=== PATIENT | male | born 1955 | race Caucasian/White ===

== ENCOUNTER 2017-04-24 08:47 | Day surgery (SDC) | payer BC ==
[~2017-04-24 08:47] MED LIST: Lactated Ringers 1,000 ML IV SCH; Sodium Chloride 0.9% 10 ML Syringe FLUSH PRN; Sodium Chloride 0.9% 2.5 ML Syringe FLUSH PRN
[2017-04-24] MEDS ORDERED: Lidocaine 2% 5 ML SDV ONE (09:15)
[2017-04-24] MEDS ORDERED: Propofol 200 MG/20 ML SDV ONE (09:15)
--- NOTE | 2017-04-24 09:24 | PCM.PREANE ---
Preanesthetic Assessment - Anesthesia/Transfusion/Family Hx Anesthesia History: Prior Anesthesia Without Reaction Family History of Anesthesia Reaction: No Transfusion History: Prior Transfusion Without Reaction Intubation History: Unknown - Review of Systems General: No Symptoms Pulmonary: No Symptoms Cardiovascular: No Symptoms Gastrointestinal: No Symptoms, Other (screening colonoscopy) Neurological: No Symptoms Other: Reports: None - Physical Assessment O2 Sat by Pulse Oximetry: 95 Respiratory Rate: 16 Vital Signs: Last Vital Signs Temp 36.4 C 04/24/17 09:14 Pulse 70 04/24/17 09:14 Resp 16 04/24/17 09:14 BP 133/89 04/24/17 09:14 Pulse Ox 95 04/24/17 09:14 Height: 1.75 m Weight: 103.873 kg ASA Class: 3 Mental Status: Alert & Oriented x3 Airway Class: Mallampati = 2 Dentition: Reports: Broken Tooth/Teeth (broken upper left, small chip upper front), Missing Tooth/Teeth Thyro-Mental Finger Breadths: 3 Mouth Opening Finger Breadths: 3 ROM/Head Extension: Full Lungs: Clear to Auscultation, Normal Respiratory Effort Cardiovascular: Regular Rate, Regular Rhythm - Allergies Allergies/Adverse Reactions: Allergies Allergy/AdvReac Type Severity Reaction Status Date / Time No Known Allergies Allergy Verified 05/06/16 13:29 - Blood Blood Available: No - Anesthesia Plan Pre-Op Medication Ordered: None - Acknowledgements Anesthesia Type Planned: MAC Pt an Appropriate Candidate for the Planned Anesthesia: Yes Alternatives and Risks of Anesthesia Discussed w Pt/Guardian: Yes Pt/Guardian Understands and Agrees with Anesthesia Plan: Yes PreAnesthesia Questionnaire HEENT History: Reports: Other (See Below) Other HEENT History: wears glasses Cardiovascular History: Reports: High Cholesterol, Hypertension Respiratory History: Reports: Other (See Below) Other Respiratory History: hx pneumonia Genitourinary History: Reports: BPH Musculoskeletal History: Reports: Fracture Endocrine/Metabolic History: Reports: Diabetes, Type II, Obesity/BMI 30+ Hematologic History: Reports: Blood Transfusion(s) Other Hematologic History: states blood transfusion as a Dermatologic History: Reports: None - Past Surgical History Head Surgeries/Procedures: Reports: None GI Surgical History: Reports: Appendectomy, Hernia, Inguinal Male Surgical History: Reports: Vasectomy Musculoskeletal Surgical History: Reports: Other (See Below) Other Musculoskeletal Surgeries/Procedures:: ORIF of left ankle fx. with plate and screws Dermatological Surgical History: Reports: Other (See Below) - SUBSTANCE USE Smoking Status *Q: Never Smoker Recreational Drug Use History: No - HOME MEDS Home Medications: Home Meds Canagliflozin [Invokana] 300 mg PO DAILY 05/07/16 [History] Finasteride 5 mg PO DAILY 05/07/16 [History] Gemfibrozil 600 mg PO BID 05/07/16 [History] Lisinopril 10 mg PO DAILY 05/07/16 [History] Tamsulosin HCl [Flomax] 0.4 mg PO DAILY 05/07/16 [History] atorvaSTATin Calcium [Atorvastatin Calcium] 10 mg PO DAILY 05/07/16 [History] sitaGLIPtin Phos/Metformin HCl [Janumet 50-500 MG] 1 tab PO BID 05/07/16 [ History] - CURRENT (IN HOUSE) MEDS Current Meds: Current Medications Lactated Ringer's (Ringers, Lactated) 1,000 mls @ 125 mls/hr IV ASDIRECTED HAROLDO Last Admin: 04/24/17 09:13 Dose: 125 mls/hr Sodium Chloride (Saline Flush) 10 ml FLUSH ASDIRECTED PRN PRN Reason: Keep Vein Open Sodium Chloride (Saline Flush) 2.5 ml FLUSH ASDIRECTED PRN PRN Reason: Keep Vein Open Discontinued Medications Lidocaine (Xylocaine-Mpf 2%) Confirm Administered Dose 5 ml .ROUTE .STK-MED ONE Stop: 04/24/17 09:16 Propofol (Diprivan 20 Ml) Confirm Administered Dose 400 mg .ROUTE .STK-MED ONE Stop: 04/24/17 09:16
--- NOTE | 2017-04-24 11:36 | PCM.OPNOTE ---
- General Post-Op/Procedure Note Date of Surgery/Procedure: 04/24/17 Operative Procedure(s): Screening colonoscopy Findings: Diverticulosis Pre Op Diagnosis: Screening colonoscopy Post-Op Diagnosis: Diverticulosis Anesthesia Technique: MAC Primary Surgeon: Jessica Jiang Condition: Good
[2017-04-24 14:15] VITALS: BP 127/90
--- NOTE | 2017-04-24 21:15 | OR ---
SURGEON: RACHEL ROBLES MD DATE OF PROCEDURE: 04/24/2017 PREOPERATIVE DIAGNOSIS: Screening colonoscopy. POSTOPERATIVE DIAGNOSIS: Diverticulosis. PROCEDURE PERFORMED: Screening colonoscopy. ANESTHESIA: MAC. INSTRUMENT USED: Olympus colonoscope. EXTENT OF EXAM: To the cecum. PREPARATION: Good. LIMITATIONS: None. INDICATIONS FOR EXAMINATION: The patient is a 61-year-old male who presents for a screening colonoscopy. We discussed the procedure, expected perioperative course, and risks including possible bleeding, infection, or damage to surrounding structures including perforation. The patient verbalized understanding and wishes to proceed. PROCEDURE IN DETAIL: The patient was brought into the endoscopy suite and placed in the left lateral decubitus position. A time-out was completed verifying the patient's name, age, date of , allergies, and procedure to be performed. Monitored anesthesia care was induced and continuous oxygen was provided via nasal cannula throughout the procedure. After adequate sedation was achieved, a digital rectal exam was performed. This exam was within normal limits. A well-lubricated colonoscope was then inserted in the rectum and advanced under direct visualization to the level of cecum. The cecum was identified by both visual and anatomic landmarks. A photograph was taken of the cecal cap. The scope was then fully withdrawn while examining the color, texture, anatomy, and integrity of the mucosa from the cecum to the anal canal. The findings were consistent with diverticulosis within the distal colon. The scope was then brought into the rectum and retroflexed to allow visualization of the anal canal opening. This appeared normal and a photograph was taken. The scope was then straightened out and removed from the patient. The cecum to anus time was 8 minutes. The patient tolerated the procedure well and was taken to the PACU in stable condition. ENDOSCOPIC DIAGNOSIS: Diverticulosis. RECOMMENDATION: Follow up in clinic in 2 weeks. KEVIN MANN /[id number]
== END 2017-04-24 11:53 | disposition home or self-care (01) ==
LOC: MW.SDS 08:47
PROVIDERS: ATTEND Surgery
DX: Z12.11 Encounter for screening for malignant neoplasm of colon (principal); K57.30 Diverticulosis of large intestine without perforation or abscess without bleeding; I10 Essential (primary) hypertension; E78.00 Pure hypercholesterolemia, unspecified; L72.3 Sebaceous cyst; E11.9 Type 2 diabetes mellitus without complications; Z79.84 Long term (current) use of oral hypoglycemic drugs; Z79.899 Other long term (current) drug therapy; Z90.49 Acquired absence of other specified parts of digestive tract; Z98.52 Vasectomy status; Z87.891 Personal history of nicotine dependence
CPT/HCPCS: 45378; J7120; 00810; J2704

== ENCOUNTER 2018-08-31 06:17 | Observation (INO) | payer BC ==
[~2018-08-31 06:17] MED LIST changes: +Sodium Chloride 0.9% 10 ML SDV IV PRN; +ceFAZolin 1 GM in Premix Bag 1 BAG IV ONE
--- NOTE | 2018-08-31 07:01 | PCM.PREANE ---
Preanesthetic Assessment - Anesthesia/Transfusion/Family Hx Anesthesia History: Prior Anesthesia Without Reaction Family History of Anesthesia Reaction: No Transfusion History: Prior Transfusion Without Reaction Intubation History: Unknown - Review of Systems General: No Symptoms Pulmonary: No Symptoms Cardiovascular: No Symptoms Gastrointestinal: No Symptoms Neurological: No Symptoms Other: Reports: None - Physical Assessment NPO Status Date: 08/30/18 NPO Status Time: 21:00 Height: 1.75 m Weight: 104.326 kg ASA Class: 2 Mental Status: Alert & Oriented x3 Airway Class: Mallampati = 2 Dentition: Reports: Broken Tooth/Teeth (right upper center tooth), Missing Tooth /Teeth (wisdom teeth , and right upper premolar/molar) Thyro-Mental Finger Breadths: 3 Mouth Opening Finger Breadths: 3 ROM/Head Extension: Full Lungs: Clear to Auscultation, Normal Respiratory Effort Cardiovascular: Regular Rate, Regular Rhythm - Allergies Allergies/Adverse Reactions: Allergies Allergy/AdvReac Type Severity Reaction Status Date / Time No Known Allergies Allergy Verified 08/25/18 12:48 - Acknowledgements Anesthesia Type Planned: General Anesthesia ([id number]) Pt an Appropriate Candidate for the Planned Anesthesia: Yes Alternatives and Risks of Anesthesia Discussed w Pt/Guardian: Yes Pt/Guardian Understands and Agrees with Anesthesia Plan: Yes PreAnesthesia Questionnaire HEENT History: Reports: None Other HEENT History: wears glasses Cardiovascular History: Reports: High Cholesterol, Hypertension Respiratory History: Reports: None Other Respiratory History: hx pneumonia Gastrointestinal History: Reports: Diverticulosis Genitourinary History: Reports: Prostate Disorder (bph) Musculoskeletal History: Reports: Fracture Neurological History: Reports: None Psychiatric History: Reports: None Endocrine/Metabolic History: Reports: Diabetes, Type II, Obesity/BMI 30+ Hematologic History: Reports: Blood Transfusion(s) Other Hematologic History: transfusion as an Immunologic History: Reports: None Oncologic (Cancer) History: Reports: None Dermatologic History: Reports: None - Past Surgical History Head Surgeries/Procedures: Reports: None HEENT Surgical History: Reports: Oral Surgery (dental extractions) Respiratory Surgical History: Reports: None GI Surgical History: Reports: Appendectomy, Colonoscopy, Hernia, Inguinal Male Surgical History: Reports: Vasectomy Endocrine Surgical History: Reports: None Neurological Surgical History: Reports: None Musculoskeletal Surgical History: Reports: Carpal Tunnel Other Musculoskeletal Surgeries/Procedures:: ORIF left ankle fx Oncologic Surgical History: Reports: None Dermatological Surgical History: Reports: None - SUBSTANCE USE Smoking Status *Q: Never Smoker Recreational Drug Use History: No - HOME MEDS Home Medications: Home Meds RX: Finasteride 5 mg PO DAILY 05/07/16 [History] RX: Gemfibrozil 600 mg PO BID 05/07/16 [History] RX: Lisinopril 10 mg PO DAILY 05/07/16 [History] RX: Tamsulosin HCl [Flomax] 0.4 mg PO DAILY 05/07/16 [History] RX: atorvaSTATin Calcium [Atorvastatin Calcium] 40 mg PO DAILY 05/07/16 [History ] RX: sitaGLIPtin Phos/Metformin HCl [Janumet 50-500 MG] 1 tab PO BID 05/07/16 [ History] Multivit-Min/FA/Lycopene/Lut [Centrum Silver Ultra Men's] 1 tab PO DAILY [History] RX: Potassium 99 mg PO DAILY 08/25/18 [History] - CURRENT (IN HOUSE) MEDS Current Meds: Current Medications Lactated Ringer's (Ringers, Lactated) 1,000 mls @ 100 mls/hr IV ASDIRECTED HAROLDO Lactated Ringer's (Ringers, Lactated) 1,000 mls @ 125 mls/hr IV ASDIRECTED HAROLDO Sodium Chloride (Saline Flush) 10 ml FLUSH ASDIRECTED PRN PRN Reason: Keep Vein Open Sodium Chloride (Saline Flush) 2.5 ml FLUSH ASDIRECTED PRN PRN Reason: Keep Vein Open Sodium Chloride (Normal Saline) 10 ml IV ASDIRECTED PRN PRN Reason: IV Use Sodium Chloride (Saline Flush) 10 ml FLUSH ASDIRECTED PRN PRN Reason: Keep Vein Open Sodium Chloride (Saline Flush) 2.5 ml FLUSH ASDIRECTED PRN PRN Reason: Keep Vein Open Sodium Chloride (Normal Saline) 10 ml IV ASDIRECTED PRN PRN Reason: IV Use Discontinued Medications Cefazolin Sodium/Dextrose 1 gm (/ Premix) 50 mls @ 100 mls/hr IV ONCALL ONE Stop: 08/31/18 00:34
[2018-08-31] MEDS ORDERED: fentaNYL 100 MCG/2 ML SDV ONE (07:12)
[2018-08-31] MEDS ORDERED: Midazolam 1 MG/ML 2 ML SDV ONE (07:12)
[2018-08-31] MEDS ORDERED: Propofol 200 MG/20 ML SDV ONE (07:13)
[2018-08-31] MEDS: Lactated Ringers 1,000 ML IV SCH ×4 (07:43→18:04)
[2018-08-31] MEDS ORDERED: ceFAZolin/Dextrose,Iso-Osmotic 2 GM/50 ML Duplex Bag IV ONE (08:29)
[2018-08-31] MEDS ORDERED: Phenylephrine/Normal Saline 100 MCG/ML 10 ML Syringe ONE (08:44)
[2018-08-31] MEDS ORDERED: Belladonna Alkaloids/Opium 16.2-30 MG Supp RECTAL PRN (09:18)
[2018-08-31] MEDS ORDERED: HYDROmorphone 2 MG/ML SDV IVPUSH ONE (09:25)
--- NOTE | 2018-08-31 09:44 | PCM.POSTAN ---
POST ANESTHESIA ASSESSMENT - MENTAL STATUS Mental Status: Alert, Oriented - RESPIRATORY Respiratory Status: Respiratory Rate WNL, Airway Patent, O2 Saturation Stable - CARDIOVASCULAR CV Status: Pulse Rate WNL, Blood Pressure Stable - GASTROINTESTINAL GI Status: No Symptoms - PAIN Pain Score: 0 - OBSERVATIONS Free Text/Narrative:: The patient tolerated the procedure well. There were no apparent anesthetic complications at this time.
--- NOTE | 2018-08-31 12:01 | OR ---
SURGEON: Aziza Oliva M.D. DATE OF PROCEDURE: 08/31/2018 PREOPERATIVE DIAGNOSIS: Chronic urinary retention with a small prostate. POSTOPERATIVE DIAGNOSIS: Chronic urinary retention with a small prostate. OPERATION: TURP. DESCRIPTION OF PROCEDURE: The patient was given spinal anesthesia, was placed in dorsal lithotomy position, prepped and draped in sterile drapes. The 26-English resectoscope was introduced into the bladder without difficulty. The prostate was resected in the usual manner including the neck of the bladder. At the end of the resection, all prostatic chips were removed. Both ureteral orifices were intact. The area of the external sphincter was intact. A 22 three-way Felipe catheter with 50 mL in the balloon was left in the bladder connected to TUR drip. Estimated blood loss under 100 mL. The patient was moved to recovery room in good condition. JOSE RAMON / MACKENZIE /[id number]
[2018-08-31] MEDS: Bacitracin Oint 28.35 GM Tube TOP SCH ×2 (14:26→21:04)
[2018-08-31] MEDS: Docusate Sodium 100 MG Cap PO SCH (20:06)
[2018-08-31] MEDS: Gemfibrozil 600 MG Tab PO SCH (20:06)
[2018-08-31] MEDS: METFORMIN HCL PO SCH (20:26)
[2018-08-31] MEDS: SITAGLIPTIN PHOS PO SCH (20:26)
[2018-09-01] MEDS: Lactated Ringers 1,000 ML IV SCH (01:58)
[2018-09-01] MEDS: Bacitracin Oint 28.35 GM Tube TOP SCH ×3 (05:56→22:12)
[2018-09-01] MEDS ORDERED: atorvaSTATin 10 MG Tab PO SCH (09:00)
[2018-09-01] MEDS: Gemfibrozil 600 MG Tab PO SCH ×2 (09:07→20:42)
[2018-09-01] MEDS: Lisinopril 10 MG Tab PO SCH (09:07)
[2018-09-01] MEDS: Multivitamins with Iron/Calcium/Folic Acid/Minerals Tab PO SCH (09:09)
[2018-09-01] MEDS: METFORMIN HCL PO SCH ×2 (09:09→20:42)
[2018-09-01] MEDS: SITAGLIPTIN PHOS PO SCH ×2 (09:09→20:42)
[2018-09-01] MEDS: Potassium [Potassium] 99 MG PO SCH (09:09)
--- NOTE | 2018-09-01 09:57 | PCM.SN ---
- Free Text/Narrative Note: 09/01 doing well
[2018-09-01] MEDS: Docusate Sodium 100 MG Cap PO SCH ×3 (10:09→20:41)
[2018-09-01] MEDS: atorvaSTATin 10 MG Tab PO SCH ×2 (19:54→20:42)
[2018-09-02] MEDS: Multivitamins with Iron/Calcium/Folic Acid/Minerals Tab PO SCH (09:55)
[2018-09-02] MEDS: METFORMIN HCL PO SCH (09:56)
[2018-09-02] MEDS: SITAGLIPTIN PHOS PO SCH (09:56)
[2018-09-02] MEDS: Potassium [Potassium] 99 MG PO SCH (09:57)
[2018-09-02] MEDS: Docusate Sodium 100 MG Cap PO SCH (09:58)
[2018-09-02] MEDS: Lisinopril 10 MG Tab PO SCH (09:58)
[2018-09-02] MEDS: Gemfibrozil 600 MG Tab PO SCH (09:59)
[2018-09-02] MEDS: Bacitracin Oint 28.35 GM Tube TOP SCH (09:59)
[2018-09-02 11:54] VITALS: BP 132/81
--- NOTE | 2018-09-03 06:09 | DISCH ---
DATE OF DISCHARGE: 09/02/2018 PRIMARY CARE PHYSICIAN: Jb Marcum M.D. HOSPITAL COURSE: A 63-year-old, who was admitted to the hospital and had a TURP done day before yesterday. Postoperatively he remained stable, was discharged on the second postop day. At the time of discharge, he is passing his urine without difficulty and the urine is reasonably clear. His hemoglobin was 13.0. His electrolytes were normal. Pathology is still pending. He comes to see me as needed. JOSE RAMON MANN /[id number]
== END 2018-09-02 12:30 ==
LOC: MW.SDS 06:17 → MW.ICU 10:30 → MW.MS 09-01 18:08
PROVIDERS: ADMIT Urology; ATTEND Urology
DX: N40.1 Benign prostatic hyperplasia with lower urinary tract symptoms (principal); R33.8 Other retention of urine; N41.1 Chronic prostatitis; I10 Essential (primary) hypertension; E11.9 Type 2 diabetes mellitus without complications; E78.00 Pure hypercholesterolemia, unspecified; M19.90 Unspecified osteoarthritis, unspecified site; Z87.891 Personal history of nicotine dependence; Z79.84 Long term (current) use of oral hypoglycemic drugs; Z79.899 Other long term (current) drug therapy
CPT/HCPCS: 36415; 52601; 80051; 82962; 85025; A9270; G0378; J0690; J2250; J2370; J2704; J3010; J7120; 00914